=== PATIENT | female | born 1995 | race African-American/Black ===

== ENCOUNTER 2019-11-06 20:16 | Emergency (ER) | payer OTHER ==
--- NOTE | 2019-11-06 20:22 | PDOC ---
Rapid Medical Evaluation Chief Complaint: Injury Time Seen by Provider: 11/06/19 20:19 Medical Evaluation: Allergies Allergy/AdvReac Type Severity Reaction Status Date / Time No Known Allergies Allergy Verified 11/06/19 20:20 11/06/19 20:20 CC: L ankle injury Pt is a 24 y/o female who presents to the ED with a L ankle injury after a fall while chasing a kid. She tripped in a crack in the street. Brief exam: Lateral ankle tenderness, pt able to moving her toes freely, abrasion to the L knee. Orders: L ankle xray, motrin, boostrix To ED for further evaluation Discharge Disposition - Diagnosis Left ankle pain - Referrals - Patient Instructions - Post Discharge Activity
[2019-11-06 20:23] VITALS: BP 129/87; PULSE 102; TEMP 97.8; BMI 36.6
[2019-11-06] MEDS ORDERED: IBUPROFEN 600 MG TABLET (FP) PO ONE (20:23)
[2019-11-06] MEDS ORDERED: DIPHTH,PERTUSS(ACELL),TET 0.5 ML DISP.SYRIN IM ONE (20:23)
--- NOTE | 2019-11-06 22:34 | PDOC ---
History of Present Illness - General Chief Complaint: Injury Stated Complaint: ANKLE INJURY Time Seen by Provider: 11/06/19 20:19 History Source: Patient - History of Present Illness Initial Comments: 11/06/19 22:47 Chief complaint: Ankle injury Patient is a healthy 24-year-old female who was at work, was running after a child and tripped, twisted her left ankle and then fell scraping her left knee. Patient does have difficulty ambulating due to the ankle. Patient is up-to- date with tetanus GENERAL/CONSTITUTIONAL: No fever, weakness. dizziness HEAD, EYES, EARS, NOSE AND THROAT: No change in vision. No ear pain or discharge. No sore throat. CARDIOVASCULAR: No chest pain RESPIRATORY: No shortness of breath or cough GASTROINTESTINAL: No pain, nausea, vomiting, diarrhea or constipation GENITOURINARY: No dysuria MUSCULOSKELETAL: No neck or back pain, + ankle injury, abrasion to left knee SKIN: No rash NEUROLOGIC: No headache, vertigo, loss of consciousness, or loss of sensation. GENERAL: The patient is awake, alert, and fully oriented, in no acute distress. HEAD: Normal with no signs of trauma. EYES: Pupils equal, round and reactive to light, sclera anicteric, conjunctiva clear. ENT: pharynx: no erythema, no exudate, uvula midline NECK: supple CHEST: clear, nontender, rr ABD: soft, nontender BACK: no tenderness or signs of injury EXTREMITIES: Mild lateral malleolar tenderness to the left ankle, no deformity or gross swelling, abrasion to the left knee, good range of motion, no deformity , neurovascular intact. Rest of extremities normal range of motion, no edema. NEUROLOGICAL: Normal speech, cranial nerves II through XII grossly intact, no gross focal abnormalities SKIN: Warm, Dry Past History - Past Medical History Allergies/Adverse Reactions: Allergies Allergy/AdvReac Type Severity Reaction Status Date / Time No Known Allergies Allergy Verified 11/06/19 20:20 Home Medications: Ambulatory Orders NK [No Known Home Medication] 03/10/16 COPD: No CHF: No - Psycho Social/Smoking Cessation Hx Smoking History: Never smoked Hx Alcohol Use: No Drug/Substance Use Hx: No Substance Use Type: None *Physical Exam - Vital Signs Last Vital Signs Temp Pulse Resp BP Pulse Ox 97.8 F 102 H 16 129/87 99 11/06/19 20:20 11/06/19 20:20 11/06/19 20:20 11/06/19 20:20 11/06/19 20:20 Procedures - Splinting Splint Location: Left: Ankle Pre-Proc Neuro Vasc Exam: normal Pre-Made Type: aircast Post-Proc Neuro Vasc Exam: normal Alfonzo Bandage: no Progress: 11/06/19 22:47 Crutches Medical Decision Making - Medical Decision Making 11/06/19 22:48 Healthy 24-year-old female who tripped and injured her left ankle and has abrasion to the left knee. X-ray done of the left ankle No fracture to ankle or fifth metatarsal. Patient tried to ambulate and had a lot of pain to the ankle. Patient will be placed in Aircast and sent home with crutches. She will have Ortho follow-up to determine when she can go back to work Discussed issues, findings, results, applicable medications and treatments and follow-up. All these were understood and all questions were answered Discharge - Discharge Information Problems reviewed: Yes Clinical Impression/Diagnosis: Left ankle injury Qualifiers: Encounter type: initial encounter Qualified Code(s): S99.912A - Unspecified injury of left ankle, initial encounter Abrasion of knee, left Qualifiers: Encounter type: initial encounter Qualified Code(s): S80.212A - Abrasion, left knee, initial encounter Condition: Stable Disposition: HOME - Admission No - Follow up/Referral Referrals: Santos Rose MD [Staff Physician] - - Patient Discharge Instructions Patient Printed Discharge Instructions: DI for Ankle Sprain, DI for Abrasion Additional Instructions: Elevate, wear splint, use crutches You can apply ice for 20 minutes every 2 hours for the next 2 days Motrin 600 mg every 6 hours for pain. Call the orthopedist tomorrow Clean with soap and water 2-3 times daily, apply bacitracin Have her reevaluated if redness, pus, fever or getting worse Followup with your doctor - Post Discharge Activity Work/Back to School Note: Back to Work
== END 2019-11-06 23:03 | disposition home or self-care (01) ==
LOC: JERFT 20:16
PROC: 2W3RX1Z Immobilization of Left Lower Leg using Splint (ICD-10-PCS; principal; 2019-11-06)
DX: S99.811A Other specified injuries of right ankle, initial encounter (principal); S80.212A Abrasion, left knee, initial encounter; W18.39XA Other fall on same level, initial encounter; Y93.02 Activity, running; Y92.414 Local residential or business street as the place of occurrence of the external cause; Y99.0 Civilian activity done for income or pay
CPT/HCPCS: 73610-TC-LT-FY; 99281-25

== ENCOUNTER 2019-11-08 20:26 | Emergency (ER) | payer OTHER ==
[2019-11-08 20:33] VITALS: BP 126/85; PULSE 85; TEMP 98.1; BMI 36.6
[2019-11-08] MEDS ORDERED: KETOROLAC TROMETHAMINE 60 MG/2 ML VIAL IM ONE (22:39)
[2019-11-08] MEDS ORDERED: KETOROLAC TROMETHAMINE 60 MG/2 ML VIAL ONE (22:46)
--- NOTE | 2019-11-08 22:52 | PDOC ---
History of Present Illness - General History Source: Patient Exam Limitations: No Limitations - History of Present Illness Initial Comments: 11/08/19 22:36 Patient is a 24-year-old female no past medical history here with complaints of right shoulder pain and neck pain 2 days ago. Patient states was seen in the ED 10/10/19 for a twisting injury to her ankle. Was given crutches, micaela which she is not using. She is c/o pain 06/17 to the right shoulder and neck due that prior injury states fell on her right shoulder. States she still has ankle pain took tylenol 1 day ago did not help so she stopped taking anything for pain. States she did not come to the ED for the ankle to be addressed but more so the shoulder and neck. LMP 10/19/2019 PMHX: as above PSOCHX: neg etoh, drug, cig ALL: NKDA GENERAL/CONSTITUTIONAL: [No fever or chills. No weakness. No weight change.] HEAD, EYES, EARS, NOSE AND THROAT: [No change in vision. No ear pain or discharge. No sore throat.] CARDIOVASCULAR: [No chest pain or shortness of breath.] RESPIRATORY: [No cough, wheezing, or hemoptysis.] GASTROINTESTINAL: [No nausea, vomiting, diarrhea or constipation. No rectal bleeding.] GENITOURINARY: [No dysuria, frequency, or change in urination.] MUSCULOSKELETAL: [(+) joint or muscle swelling or pain. (+) neck or back pain.] SKIN AND BREASTS: [No rash or easy bruising.] NEUROLOGIC: [No headache, vertigo, loss of consciousness, or loss of sensation.] PSYCHIATRIC: [No depression or anxiety.] ENDOCRINE: [No increased thirst. No abnormal weight change.] HEMATOLOGIC/LYMPHATIC: [No anemia, easy bleeding, or history of blood clots.] ALLERGIC/IMMUNOLOGIC: [No hives or skin allergy. No latex allergy.] GENERAL: [The patient is awake, alert, and fully oriented, in no acute distress. ] HEAD: [Normal with no signs of trauma.] EYES: [Pupils equal, round and reactive to light, extraocular movements intact, sclera anicteric, conjunctiva clear.] ENT: [Ears normal, nares patent, oropharynx clear without exudates. Moist mucous membranes.] NECK: [Normal range of motion, supple without lymphadenopathy, mild tenderness over the left SCM, JVD, or masses.] LUNGS: [Breath sounds equal, clear to auscultation bilaterally. No wheezes, and no crackles.] HEART: [Regular rate and rhythm, normal S1 and S2 without murmur, rub.] ABDOMEN: [Obese, soft, nontender, normoactive bowel sounds. No guarding, no rebound. No masses.] EXTREMITIES: [Decreased range of motion right arm to extension above the head, tenderness over the anterior deltoid, no edema. No clubbing or cyanosis. No cords, erythema, or tenderness.] NEUROLOGICAL: [Cranial nerves II through XII grossly intact. Normal speech, normal gait.] PSYCH: [Normal mood, normal affect.] SKIN: [Warm, Dry, normal turgor, no rashes or lesions noted.] <Arsalan Mary - Last Filed: 11/09/19 00:07> <Holley Chavis - Last Filed: 12/10/19 10:17> - General Chief Complaint: Pain Stated Complaint: SHOULDER/NECK PAIN Past History - Past Medical History COPD: No CHF: No - Psycho Social/Smoking Cessation Hx Smoking History: Never smoked Hx Alcohol Use: No Drug/Substance Use Hx: No Substance Use Type: None <Arsalan Mary - Last Filed: 11/09/19 00:07> <Holley Chavis - Last Filed: 12/10/19 10:17> - Past Medical History Allergies/Adverse Reactions: Allergies Allergy/AdvReac Type Severity Reaction Status Date / Time No Known Allergies Allergy Verified 11/08/19 21:51 Home Medications: Ambulatory Orders Acetaminophen [Tylenol] 650 mg PO PRN 11/08/19 Cyclobenzaprine HCl [Flexeril 10 mg] 10 mg PO TID #20 tablet 11/08/19 Naproxen [EC-Naprosyn] 500 mg PO BID #30 tablet. 11/08/19 *Physical Exam - Vital Signs Last Vital Signs Temp Pulse Resp BP Pulse Ox 98.1 F 85 19 126/85 100 11/08/19 20:29 11/08/19 20:29 11/08/19 20:29 11/08/19 20:29 11/08/19 20:29 <Arsalan Mary - Last Filed: 11/09/19 00:07> - Vital Signs Last Vital Signs Temp Pulse Resp BP Pulse Ox 98.1 F 85 19 126/85 100 11/08/19 20:29 11/08/19 20:29 11/08/19 20:29 11/08/19 20:29 11/08/19 20:29 <Holley Chavis - Last Filed: 12/10/19 10:17> ED Treatment Course - Medications Given in the ED: ED Medications Discontinued Medications Generic Name Dose Route Start Last Admin Trade Name Zulema PRN Reason Stop Dose Admin Ketorolac Tromethamine 60 mg 11/08/19 22:39 11/08/19 22:53 Toradol Injection - IM 11/08/19 22:40 60 mg ONCE ONE Administration <Holley Chavis - Last Filed: 12/10/19 10:17> Medical Decision Making - Medical Decision Making 11/08/19 22:36 Patient is a 24-year-old female no past medical history here with complaints of right shoulder pain and neck pain 2 days ago. Patient states was seen in the ED 10/10/19 for a twisting injury to her ankle. Was given crutches, micaela which she is not using. She is c/o pain 9/10 to the right shoulder and neck due that prior injury states fell on her right shoulder. States she still has ankle pain took tylenol 1 day ago did not help so she stopped taking anything for pain. States she did not come to the ED for the ankle to be addressed but more so the shoulder and neck. LMP 10/19/2019 Symptoms consistent with muscle strain/contusion. Will get x-ray of right shoulder and cervical spine rule out any kind of fracture pathology. Toradol 60 mg IM for pain Reassess X-ray reviewed no acute findings. I discussed the physical exam findings, ancillary test results and final diagnoses with the patient. I answered all of the patient's questions. The patient was satisfied with the care received and felt comfortable with the discharge plan and treatment plan. The Patient agrees to follow up with the primary care physician within 24-72 hours. <Arsalan Mary - Last Filed: 11/09/19 00:07> - Medical Decision Making I reviewed the case with the mid-level practitioner and agree with the mid- level practitioner's assessment, diagnosis and disposition. <Holley Chavis - Last Filed: 12/10/19 10:17> Discharge - Discharge Information Problems reviewed: Yes <Arsalan Mary - Last Filed: 11/09/19 00:07> <Holley Chavis - Last Filed: 12/10/19 10:17> - Discharge Information Clinical Impression/Diagnosis: Right shoulder strain Qualifiers: Encounter type: initial encounter Qualified Code(s): S46.911A - Strain of unspecified muscle, fascia and tendon at shoulder and upper arm level, right arm , initial encounter Cervical strain Qualifiers: Encounter type: initial encounter Qualified Code(s): S16.1XXA - Strain of muscle, fascia and tendon at neck level, initial encounter Condition: Stable Disposition: HOME - Additional Discharge Information Prescriptions: Cyclobenzaprine HCl [Flexeril 10 mg] 10 mg PO TID #20 tablet Naproxen [EC-Naprosyn] 500 mg PO BID #30 tablet.dr - Follow up/Referral Referrals: Santos Rose MD [Staff Physician] - - Patient Discharge Instructions Patient Printed Discharge Instructions: DI for Cervical Muscle Strain, DI for Shoulder Sprain Additional Instructions: Your Discharge Instructions: You must call primary care physician within 24 hours to arrange follow-up. Return to the Emergency Department with any new, persistent or worsening symptoms, for fever, chills, SOB, dizziness or any other concerning changes that may occur. Continue naproxen twice a day and take the muscle relaxant as prescribed. Follow-up with the orthopedist if not improved.
== END 2019-11-08 23:38 | disposition home or self-care (01) ==
LOC: JER 20:26 → JERFT 20:26 → JER 23:38
PROC: 3E0233Z Introduction of Anti-inflammatory into Muscle, Percutaneous Approach (ICD-10-PCS; principal; 2019-11-08)
DX: S16.1XXA Strain of muscle, fascia and tendon at neck level, initial encounter (principal); S46.811A Strain of other muscles, fascia and tendons at shoulder and upper arm level, right arm, initial encounter; W19.XXXA Unspecified fall, initial encounter; Y93.89 Activity, other specified; Y92.89 Other specified places as the place of occurrence of the external cause; Y99.8 Other external cause status
CPT/HCPCS: 72050-TC-FY; 73030-TC-RT-FY; 99282-25